=== PATIENT | female | born 1960 | race Caucasian/White ===

== ENCOUNTER → 2017-04-24 | Outpatient (CLI) | payer MEDICARE | LOC: LAB 15:41 | DX: J02.8 Acute pharyngitis due to other specified organisms (principal); Z20.818 Contact with and (suspected) exposure to other bacterial communicable diseases ==

== ENCOUNTER → 2017-05-05 | Outpatient (CLI) | payer MEDICARE | LOC: RAD 11:45 | DX: R07.89 Other chest pain (principal); Z91.81 History of falling ==

== ENCOUNTER 2017-05-28 17:48 | Outpatient (RCR) | payer MEDICARE ==
[~2017-05-28] VITALS: Ht 162.6 cm; Wt 118.8 kg
[2017-05-28 18:00] VITALS: BP 156/95
[2017-05-28 18:30] VITALS: BP 162/68
[2017-05-28] MEDS ORDERED: ADVIL MIGRAINE200 MG PO (18:53)
[2017-05-29 17:24] VITALS: BP 159/89
[2017-05-30 16:56] VITALS: BP 163/100
== END 2017-05-30 18:00 | disposition home or self-care (01) ==
LOC: AMSURD 17:48
DX: J02.0 Streptococcal pharyngitis (principal)
CPT/HCPCS: J0696

== ENCOUNTER → 2017-05-28 | Outpatient (CLI) | payer MEDICARE ==
[~2017-05-28] MED LIST: ADVIL MIGRAINE200 MG PO
== END ==
LOC: LAB 14:50
DX: J06.0 Acute laryngopharyngitis (principal)